=== PATIENT | female | born 1960 | race Caucasian/White ===

== ENCOUNTER 2023-10-10 12:11 | Inpatient (IN) | payer MEDICARE, MEDICAID, SELFPAY ==
[2023-10-10] VITALS (61 sets, daily range): BP systolic 89–225; BP diastolic 70–120; PULSE 40–70; RESP 11–26; TEMP 36.7–37.2; O2SAT 94–100
--- NOTE | 2023-10-10 12:15 | RT.EKG_ITS ---
APPROVED REPORT Exam: Resting ECG Reason for Exam: SOB Patient Location: E HR:55 bpm ECG Measurements Heart Rate 55 AXIS SD [id number] P 0 QRSd 107 QRS -18 QT 478 T 35 QTc 456 Conclusion AV block, complete (third degree)...V-rate< 60, AV dissociation Accelerated idioventricular rhythm. No obvious P waves. Regular rate pleat heart block. Left axis deviation no signs of LVH based on voltage criteria. No ischemic changes beyond mild ST segment depr essions V2 and V3. Low voltage limb leads. Compared to prior in [facility] system from 2012 AV block has replaced normal sinus rhythm.
--- NOTE | 2023-10-10 12:45 | RT.EKG_ITS ---
APPROVED REPORT Exam: Resting ECG Reason for Exam: Chest pain Patient Location: E HR:50 bpm ECG Measurements Heart Rate 50 AXIS NJ 151 P 0 QRSd 99 QRS -21 QT 485 T 36 QTc 444 Conclusion Sinus bradycardia...rate< 60 Narrow complex sinus bradycardia at a rate of 50. Normal axis. Intervals within normal limits. No ST segment abnormalities. Low voltage limb leads similar to prior. Sinus bradycardia has replaced a ccelerated interventricular rhythm from prior.
--- NOTE | 2023-10-10 12:46 | ED.GENADUL_ITS ---
Discharge Plan Disposition Patient Disposition: Admit to [facility] Discharge Details Clinical Impression: Blood pressure elevated without history of HTN, Chest pain, unspecified Admit Date/Time: 10/10/23 17:33 Admit Provider: Lisa Coelho Attending Provider: Lisa Coelho Primary Care Provider: Unknown,Unknown ED Provider: Kamari Downey Discharge Data Discharge Date/Time-TO BE ENTERED AT DEPARTURE: 10/10/23 19:59 HPI General Date/Time Provider Initiated Documentation: 10/10/23 12:46 . HPI Narrative: MDM This is an afebrile and not tachycardic 63-year-old female with chest pain concerning for multiple etiologies. Patient reports that she has been nauseous but not vomiting. As result my suspicion is low for esophageal rupture. No tearing quality to suggest aortic dissection. Based on the patient's age and my low suspicion for pulmonary embolism will plan on obtaining a D-dimer. Patient does have risk factors for ACS so will obtain troponins. No history of falls to suggest trauma. No B-lines bilaterally and no significant lower extremity edema so my suspicion is low for acute CHF. Patient does have a trace pericardial effusion so we will order a formal echocardiogram to ensure that she does not have tamponade physiology though she is not hypotensive nor tachycardic. No rash to chest to suggest zoster. No significant cough to suggest pneumonia and no fevers. Will reassess following 2 sets of troponin. Given no recent URI symptoms my suspicion is low for myopericarditis. Will obtain COVID flu and influenza. No pain out of proportion to suggest necrotizing soft tissue infection. Not an alcoholic to suggest pancreatitis. Given bradycardia will obtain a lactate to assess for gut hypoperfusion. 1:55 PM Negative troponin. Comprehensive metabolic panel showing normal renal function. Very mild hypokalemia. No acute LFT abnormalities. CBC lacks anemia thrombocytopenia and leukocytosis. Very mildly elevated lactate at 1.5 mmol/L.Normal reassuring magnesium. Normal reassuring TSH. proBNP mildly elevated at 800 pg/mL. 2:07 PM Unfortunately echocardiogram is not available today. I anticipate that patient will require hospitalization to complete echocardiogram and for cardiac monitoring. Negative D-dimer. Negative flu RSV, COVID and influenza. 2:30 PM Patient became markedly hypertensive in setting of chest pain concerned about possibility of dissection so we will obtain CT chest abdomen pelvis. Given hypertension and bradycardia I am also concerned for the possibility of [place]'s reflex so we will obtain a dry CT head. 4:15 PM I spoke with radiology and the patient will be able to undergo echocardiogram tomorrow. Given that she has not been tachycardic nor hypotensive in the emergency department my suspicion for tamponade physiology remains low. As result I feel that she is appropriate for local hospitalization assuming she does not take troponin. 4:40 PM Repeat negative troponin. Awaiting CT read. 4:45 PM No evidence of dissection on CT scan. Patient does have small amount of ascites in the abdomen pelvis mild anasarca and concern on CT scan for possibility of right heart failure. Given concern for small pericardial effusion patient will benefit from hospitalization with formal echocardiogram tomorrow. I spoke with echo techs and they have a spot for the patient tomorrow. Will reach out to the hospitalist. Patient certainly could have pericardial effusion related to malignancy. Patient noted improvement in her symptoms following nitroglycerin. 5pm I spoke with Dr. Bean from general surgery. He advised that patient's hernia was not likely causing her symptoms. Patient's blood pressure became markedly elevated into the 220s systolically. She is not on any outpatient home antihypertensives but given concern for right-sided heart failure will trial small dose of oral diuretics with furosemide at 40 mg p.o. 5:08 PM I spoke with Dr. Coelho who agreed graciously to accept the patient for hospitalization. Chronic conditions affecting the care of the patient: Hyperlipidemia History obtained from an outside historian: Patient's External record review: [facility] [Diagnostic interpretations performed by me: Chest x-ray:Chest x-ray showing mildly increased interstitial markings bilaterally. Per my independent interpretation EKG shows: Initial rhythm concerning for accelerated ventricular rhythm. Repeat ECG shows sinus bradycardia with low voltage in limb leads. ]Medications: N/A Social determinants of health affecting disposition: N/A Management discussed with: Hospitalist Treatment/interventions considered: N/A Response to therapies provided: N/A HPI This is a 63-year-old female with a history of hyperlipidemia arrived to the emergency department in the setting of chest pain. Patient reports that her chest pain began this morning. She feels nauseous. She endorses a central constant chest pain. Pain does not radiate. No prior history of similar symptoms. No recent URI symptoms. No positional component. No leg swelling. No prior history of PE nor DVT. No history of coronary artery disease diabetes nor hypertension. Patient reports that her pain is constant since yesterday. No routine tobacco, ethanol, nor illicits. No prior history of similar pain. No rash to chest. Patient denies history of COPD and tobacco use.Patient does feel slightly more short of breath when she lays flat. Exam General: Well-appearing in no acute distress speaking in complete sentences. Head: Normocephalic, atraumatic. Eye: Extraocular eye movements intact. No conjunctival injection. No scleral icterus. Ear, nose, mouth, throat: Grossly normal inspection. Normal voice, handling secretions normally. Neck: Trachea midline. Cardiovascular: Well-perfused distal extremities. Bradycardic regular rhythm Respiratory: Nonlabored respiration. Clear lungs bilaterally. Gastrointestinal: Nondistended abdomen. Soft nontender. Musculoskeletal: No edema. Moving all 4 extremities spontaneously. Skin: Normal for age and race, grossly normal temperature and turgor. No acute rash. Neurologic: Alert and appropriate, no apparent acute deficits. Psychiatric: Mood and manner are appropriate. Grooming and personal hygiene are appropriate. Related Data Home Medications Medication Instructions Recorded Confirmed atogepant 60 mg tablet (Qulipta) 60 mg PO DAILY 10/10/23 10/10/23 escitalopram oxalate 20 mg tablet 20 mg PO DAILY 10/10/23 10/10/23 lamotrigine 100 mg tablet 100 mg PO DAILY 10/10/23 10/10/23 (Lamictal) loratadine 10 mg tablet 10 mg PO DAILY 10/10/23 10/10/23 (Allerclear) omeprazole 40 mg capsule,delayed 40 mg PO DAILY 10/10/23 10/10/23 release simvastatin 40 mg tablet 40 mg PO QHS 10/10/23 10/10/23 trazodone 150 mg tablet 150 mg PO QHS PRN 10/10/23 10/10/23 Allergies Allergy/AdvReac Type Severity Reaction Status Date / Time morphine AdvReac Mild Nausea Unverified 10/10/23 13:38 Sulfa (Sulfonamide AdvReac Mild Nausea Unverified 10/10/23 13:38 Antibiotics) General Stated Complaint: Chest Pain DUSTIN: 2 PFSH All Active Problems (Updated 10/11/23 @ 00:57 by Roscoe Hardwick) Hypokalemia (Acute) CHF (congestive heart failure) (Acute) Renal atrophy, left (Chronic) Hyperlipidemia (Chronic) Migraine headache (Chronic) GERD (gastroesophageal reflux disease) (Chronic) Depression (Chronic) Sinus bradycardia (Acute) HTN (hypertension) (Acute) Atypical chest pain (Acute) Blood pressure elevated without history of HTN (Acute) Surgical History (Updated 10/10/23 @ 18:29 by Roscoe Hardwick) S/P cholecystectomy Status post Lilly fundoplication Social History Smoking/Tobacco Use Status: Never Smoking risk assessment performed?: Yes Alcohol Intake: never Substance use type: does not use Housing: house Do you feel safe at home: Yes Do you feel safe in your relationship?: Yes Course Vital Signs Vital signs: Vital Signs Temperature 37.2 C 10/10/23 12:28 Pulse 59 L 10/10/23 12:28 Respiratory Rate 16 10/10/23 12:28 Blood Pressure 138/90 10/10/23 12:28 Pulse Oximetry 100 10/10/23 12:28 Temperature 37.2 C 10/10/23 12:28 Temperature Source Skin 10/10/23 12:28 Pulse 59 L 10/10/23 12:28 Respiratory Rate 16 10/10/23 12:28 Blood Pressure 138/90 10/10/23 12:28 Pulse Oximetry 100 10/10/23 12:28 Oxygen Delivery Method Room Air 10/10/23 12:28 Oxygen Flow Rate 0 10/10/23 12:28 Pain Level 8 10/10/23 12:28 POCUS Exam (ED) Limited Cardiac Exam DATE OF EXAM: 10/10/23 TIME OF EXAM: 14:04 PROVIDER THAT PERFORMED THE STUDY: Kamari Downey IS THIS A REPEAT EXAM DURING THIS ENCOUNTER: no REASON FOR EXAM: Chest pain VISUALIZED STRUCTURES: Four Chambers and Left ventricle VIEW OBTAINED: Apical 4-Chamber, Parasternal long-axis and Subxiphoid PERTINENT FINDINGS/IMPRESSION: Pericardial effusion (Trace pericardial effusion); No LV dysfunction and No RV dilation DIFFERENTIAL DIAGNOSES: Good squeeze, aortic outflow track less than 4 cm, trace pericardial effusion, RV less than LV Exam complete
[2023-10-10 13:24] LABS: Lactate 1.5 mmol/L (0.6-1.4)
[2023-10-10 13:25] LABS: Abs Immature Grans 0.01 10^3/uL (0.0-0.06); Absolute Basophil Count 0.01 10^3/uL (0.0-0.2); Absolute Eosinophil Count 0.06 10^3/uL (0.0-0.7); Absolute Lymphocyte Count 1.24 10^3/uL (1.2-3.4); Absolute Monocyte Count 0.26 10^3/uL (0.1-0.8); Absolute Neutrophil Count 2.86 10^3/uL (1.2-6.7); Basophils % 0.2; Eosinophils % 1.4; HGB 12.8 g/dL (11.2-15.7); Immature Grans % 0.2; Lymphocytes % 27.9; MCH 30.4 pg (27.0-33.0); MCHC 34.6 % (32.0-36.0); MCV 88 fL (80-95); MPV 10.8 fL (8.0-11.0); Monocytes % 5.9; Neutrophils % 64.4; Platelet Count 185 10^3/uL (130-400); RBC 4.21 10^6/uL (3.93-5.22); RDW 12.6 % (11.7-14.6); RDW-SD 40.4 fL; WBC 4.44 10^3/uL (4.4-10.8)
[2023-10-10] MEDS: Aspirin 81 MG CHEW 324 MG CH (13:31)
--- NOTE | 2023-10-10 13:33 | DI.RAD_ITS ---
Exam(s) XR PORTABLE CHEST AP EXAM: XR PORTABLE CHEST AP CLINICAL HISTORY: Chest pain TECHNIQUE: 2D digital imaging was performed of the chest. Two images were obtained. AP views were obtained. COMPARISON: No exams were available for comparison FINDINGS: MEDIASTINUM: Normal. HEART: Cardiomegaly. PULMONARY VASCULATURE: Normal. LUNGS: Clear. PLEURAL SPACE: No pleural effusion or pneumothorax. BONE:Within normal limits for the patient's age. OTHER FINDINGS:Normal. IMPRESSION: No acute pulmonary findings. DATA REPOSITORY: RADIATION DOSE DELIVERED:
[2023-10-10 13:51] LABS: ALT 28 U/L (14-59); AST 20 U/L (15-37); Albumin 3.7 g/dL (3.4-5.0); Alkaline Phosphatase 98 U/L (46-116); BUN 5 mg/dL (7-18); Bilirubin, Total 0.9 mg/dL (0.2-1.0); Calcium 9.3 mg/dL (8.5-10.1); Chloride 103 mmol/L (98-107); Glucose 103 mg/dL (74-106); Magnesium 1.8 mg/dL (1.8-2.4); NT-proBNP 800 pg/mL (<300); Potassium 3.4 mmol/L (3.5-5.1); Sodium 139 mmol/L (136-145); Total Protein 6.4 g/dL (6.4-8.2); Troponin I < 50 ng/L (<or=60)
[2023-10-10 14:01] LABS: D-Dimer 369 ng/mlFEU (<500)
[2023-10-10 14:05] LABS: COVID-19 PCR Negative (Negative); Influenza A PCR Negative (Negative); Influenza B PCR Negative (Negative); RSV PCR Negative (Negative)
[2023-10-10 14:07] LABS: Source Nasopharynx
--- NOTE | 2023-10-10 14:15 | DI.CT_ITS ---
Exam(s) CT THORAX ABD/PEL CTA EXAM: CT THORAX ABD/PEL CTA CLINICAL HISTORY: Chest pain hypertension. TECHNIQUE: Imaging Protocol: Axial computed tomography images with coronal and sagittal reformatted images were created and reviewed CONTRAST MATERIAL: Intravenous: Omnipaque 350 Contrast volume:100 ml Oral: None COMPARISON: CR XR PORTABLE CHEST AP from 10/10/2023 FINDINGS: CHEST: AORTA: The diameter of the ascending thoracic aorta is enlarged measuring 3.9 cm.. The diameter of t he aortic arch is upper normal. Diameter of the proximal descending thoracic aorta, mid descending t horacic aorta and distal descending thoracic aorta are upper normal. There is no evidence of aortic dissection. There is no pericardial effusion. Incidentally noted is independent origin of the left vertebral artery off of the aortic arch. PULMONARY ARTERIES: No obvious intraluminal filling defects to suggest the presence of pulmonary embo li. LUNGS: No evidence of infiltrates, pulmonary infarction, nor pleural effusions. Minimal benign-appea ring increased markings are noted in both lung bases.. MEDIASTINUM: Moderate size hiatal hernia noted. No hilar nor mediastinal adenopathy evident. Visual ized thyroid unremarkable. CARDIAC: Heart size is minimally prominent. There is no pericardial effusion. Ventricular ratio is 1:1. ABDOMEN: There is no evidence of abdominal aortic aneurysm nor dissection.There is no aneurysmal dilatation of the common iliac arteries. Common femoral arteries are patent as are the proximal aspects of the SF A arteries bilaterally.The celiac and superior mesenteric arteries are patent.Right renal artery is p atent. The left renal artery is not opacified and the left kidney is diminutive. There is a mild perihepatic ascites as well as mild ascites in the dependent aspect of the pelvis. LIVER: Liver is hypodense implying steatosis. No obvious focal hepatic lesions evident on this arter ial phase study. GALLBLADDER/BILIARY: Gallbladder is surgically absent. CBD diameter is commensurate with patient's p ost cholecystectomy status. PANCREAS: No evidence of pancreatic mass nor dilatation of the pancreatic duct. SPLEEN: Spleen is not enlarged. There are no intrasplenic lesions. ADRENALS: There are no significant adrenal masses. KIDNEYS: Right kidney unremarkable. On the left kidney is diminutive as is the left renal artery. N o calculi nor hydronephrosis. No solid renal masses. ABDOMINAL AORTA: The abdominal aorta is not enlarged. LYMPH NODES: There is no retroperitoneal nor para-aortic adenopathy. No obvious mesenteric masses. ABDOMINAL WALL: No evidence of significant anterior abdominal wall hernia. Mild anasarca. GI: There is no evidence of bowel obstruction, free air, nor abscess.No obvious ischemic appearing joesph wel loops. PELVIS: LYMPH NODES: There is no intrapelvic nor inguinal adenopathy. GI: Appendix is difficult to locate as a separate structure but no obvious appendicitis seen.No evide nce of sigmoid diverticulitis. URINARY BLADDER: No calculi nor masses evident REPRODUCTIVE: Age-appropriate OSSEOUS: No significant osseous lesions. No fractures. IMPRESSION: 1. The ascending thoracic aorta is enlarged measuring 3.9 cm. However, there is no evidence of aorti c dissection nor pericardial effusion. No evidence of abdominal aortic aneurysm. Also no evidence o f pulmonary emboli nor pulmonary infarction. There are no pleural effusions. 2. The left kidney is diminutive and the left renal artery is also diminutive. Right kidney and righ t renal artery appear unremarkable. 3. There is a small amount of ascites in the abdomen and pelvis. There is also mild anasarca. Some reflux of contrast was noted into the intrahepatic IVC. Cannot exclude element of right heart failur e. 4. Previous cholecystectomy. No significant dilatation of the biliary tree. Report called by myself to ER physician. RADIATION DOSE DELIVERED: Total DLP DATA REPOSITORY: All CT scans at this facility are submitted to the National Radiology Data Registry (NRDR) Dose Index Registry (DIR) with the [employer] ([employer]). RADIATION OPTIMIZATION: All CT scans at this facility use at least one of these dose optimization te chniques: automated exposure control; mA and/or kV adjustment per patient size (includes targeted exa ms where dose is matched to clinical indication); or iterative reconstruction.
--- NOTE | 2023-10-10 14:30 | DI.CT_ITS ---
Exam(s) CT HEAD WO EXAM: CT HEAD WO CLINICAL HISTORY: Hypertension bradycardia concern for intracranial. TECHNIQUE: Imaging Protocol: Axial computed tomography images with coronal and sagittal reformatted images were created and reviewed COMPARISON: No exams were available for comparison FINDINGS: Ventricles and Extra axial spaces: Normal in size and morphology for the patient's age. Hemorrhage: None. Cerebral parenchyma: No mass effect. There are areas of decreased attenuation in the white matter mo st consistent with small vessel ischemic disease. Midline shift: None. Brainstem/Cerebellum: Normal. Calvarium: Normal. Visualized Paranasal sinuses/Mastoids: Clear. Soft Tissues: Unremarkable. IMPRESSION: 1. No acute intracranial process. 2. Findings were discussed with Dr. Davis at 3:57 p.m. on 10/10/2023. RADIATION DOSE DELIVERED: Total DLP DATA REPOSITORY: All CT scans at this facility are submitted to the National Radiology Data Registry (NRDR) Dose Index Registry (DIR) with the [employer] (A[employer]). RADIATION OPTIMIZATION: All CT scans at this facility use at least one of these dose optimization te chniques: automated exposure control; mA and/or kV adjustment per patient size (includes targeted exa ms where dose is matched to clinical indication); or iterative reconstruction.
[2023-10-10] MEDS: Normal Saline - Diluent 50 ML VIAL IJ (15:56)
[2023-10-10] MEDS: Omnipaque 350 MG/ML 100 ML BTL 125 ML IJ (16:01)
[2023-10-10 16:33] LABS: Troponin I < 50 ng/L (<or=60)
--- NOTE | 2023-10-10 16:50 | DI.VRAD_ITS ---
PROCEDURE INFORMATION: Exam: CTA Chest With Contrast CTA Abdomen and Pelvis With Contrast Exam date and time: 10/10/2023 3:45 PM Age: 63 years old Clinical indication: Other: Chest pain hypertension TECHNIQUE: Imaging protocol: Computed tomographic angiography of the chest with contrast. Exam focused on the arteries. Computed tomographic angiography of the abdomen and pelvis with contrast. Exam focused on the arteries. 3D rendering (Not supervised by radiologist): MIP and/or 3D reconstructed images were created by the technologist. Contrast material: OMNIPAQUE; Contrast volume: 100 ml; Contrast route: INTRAVENOUS (IV); COMPARISON: CR XR PORTABLE CHEST AP 10/10/2023 1:30 PM FINDINGS: VASCULATURE: Pulmonary arteries: Normal. No pulmonary emboli. Aorta: No aortic aneurysm or dissection. Mild atherosclerotic disease. Three-vessel arch with patent great vessel origins. Celiac trunk and mesenteric arteries: No occlusion or significant stenosis. Renal arteries: Severe stenosis of the left renal artery. No occlusion or significant stenosis of the right renal artery. Right iliac arteries: No occlusion or significant stenosis. Left iliac arteries: No occlusion or significant stenosis. CHEST: Lungs: Evaluation of the lung parenchyma is limited by motion artifact. No consolidation. No mass. Mild atelectasis and/or scarring. Pleural spaces: Unremarkable. No pneumothorax. No pleural effusion. Heart: Unremarkable. No cardiomegaly. No pericardial effusion. Diaphragm: Small hiatal hernia. ABDOMEN AND PELVIS: Liver: No mass. Gallbladder and bile ducts: The gallbladder is surgically absent. Pancreas: Fatty atrophy of the pancreas. Spleen: Unremarkable. No splenomegaly. Adrenal glands: Unremarkable. No mass. Kidneys and ureters: Severely atrophic left kidney. Right kidney is unremarkable. Mild prominence of the bilateral ureters, possibly physiologic. Stomach and bowel: Small hiatal hernia containing proximal stomach. Mildly distended fluid-filled loops of small bowel within the mid and left hemiabdomen. No sharp transition point. Mild wall thickening of the ascending, descending and sigmoid colon. Appendix: No evidence of appendicitis. Intraperitoneal space: Small volume intraperitoneal free fluid. Urinary bladder: Unremarkable. No mass. Reproductive: Unremarkable as visualized. Lymph nodes: Multiple retroperitoneal and mesenteric lymph nodes are seen, though measuring less than 1 cm in short axis. Bones/joints: Degenerative changes of the spine. Chronic rib fractures. Soft tissues: Anasarca IMPRESSION: 1. No aortic dissection. 2. Small volume ascites. 3. Mildly distended fluid-filled loops of small bowel without sharp transition point. Findings could reflect ileus or partial small bowel obstruction. 4. Mild wall thickening of the colon. Finding is nonspecific in the setting of intraperitoneal free fluid, although could represent colitis. Dictated and Authenticated by: Mu Mccracken MD. Ordering:PAYAL Benites MD
[2023-10-10] MEDS: Furosemide 20 MG TAB 40 MG PO (17:28)
--- NOTE | 2023-10-10 18:20 | W.PM.HP.N ---
Date of service: 10/10/23 Time of Service: 18:20 Assessment and Plan Assessment and plan (1) Atypical chest pain: Start date: 10/10/23 Status: Acute Assessment and plan: This is a 63-year-old lady presenting to the ED with chest pressure and pain which was retrosternal. This is worse with exertion and has some associated dyspnea but no other associated symptoms. She has been having increasing shortness of breath in the morning with exertion over the last weeks. She has had no weight gain or peripheral edema. In the ED she was found to have a bradycardia with question of junctional dysrhythmia intermittently. Her troponins were negative and she had no evidence of acute cardiac ischemia. She was given loading dose of aspirin and was not being treated for acute coronary syndrome or non-STEMI at this time with her pain improved at the time I saw her having been given IV Lasix. She was assessed as having possible right-sided heart failure with plans for echocardiogram in the morning and troponins being trended negative. She will continue cardiac monitoring. She has no previous significant heart disease or history of hypertension being hypertensive in the ED. She does have evidence of a atrophied left kidney and renal artery which may need further investigation especially with her hypertension. She is a full code. (2) CHF (congestive heart failure): Start date: 10/10/23 Status: Acute Assessment and plan: Patient has a question of right-sided heart failure with mild ascites. Echocardiogram and continue IV Lasix with repletion of potassium anticipating further exacerbation of hypokalemia. She is currently not on diuretics. Qualifiers: Heart failure type: other Qualified Code(s): I50.9 - Heart failure, unspecified (3) Sinus bradycardia: Start date: 10/10/23 Status: Acute Assessment and plan: Patient has sinus bradycardia but also an intermittent appearance of junctional dysrhythmia with P waves absent and no true evidence of third-degree or secondary heart block on tracing seen. Continue cardiac monitoring and avoid. Hypertension with beta-blockers. (4) HTN (hypertension): Start date: 10/10/23 Status: Acute Assessment and plan: Patient does not have runs of hypertension in the past and had very significant elevation of her systolic blood pressure in the ED. She was initiated on amlodipine. She does have a small left kidney and may need further workup for secondary hypertension if difficult to control. Avoid beta-blockers with bradycardia. Qualifiers: Hypertension type: primary hypertension Qualified Code(s): I10 - Essential (primary) hypertension (5) Hypokalemia: Start date: 10/10/23 Status: Acute Assessment and plan: IV repletion and follow-up in the morning. Monitor daily magnesium as well. (6) GERD (gastroesophageal reflux disease): Status: Chronic Assessment and plan: Status post previous procedures with maximization of treatment adding Carafate with IV Protonix while hospitalized. Qualifiers: Esophagitis presence: without esophagitis Qualified Code(s): K21.9 - Gastro-esophageal reflux disease without esophagitis (7) Depression: Status: Chronic Assessment and plan: Continue outpatient medical therapy. Qualifiers: Depression Type: other depression Qualified Code(s): F32.89 - Other specified depressive episodes (8) Migraine headache: Status: Chronic Assessment and plan: Continue outpatient medical therapy. Qualifiers: Intractability: not intractable Migraine type: other Status migrainosus presence: without status migrainosus Qualified Code(s): G43.809 - Other migraine, not intractable, without status migrainosus (9) Hyperlipidemia: Status: Chronic Assessment and plan: Continue moderate dose statin. Qualifiers: Hyperlipidemia type: other hyperlipidemia Qualified Code(s): E78.49 - Other hyperlipidemia (10) Renal atrophy, left: Status: Chronic Assessment and plan: Diminutive left kidney and renal artery with further medication for secondary hypertension if blood pressure continues to be out of control. Renal functions appear to be normal but will be monitored with IV diuresis. History of Present Illness History of Present Illness Chief Complaint: Chest pain Narrative: This is a 63-year-old female patient who presents to the ED with complaints of chest pressure and pain which was not sharp occurring over her retrosternal area the evening of presentation. She had been having increased shortness of breath with exertion especially in the morning when washing dishes but had no peripheral edema or weight gain. She had actually weighed 207 pounds years ago and has lost down to 111 pounds. She has had a Dk fundoplication in the past for severe esophageal hernia and also cholecystectomy. She is not having heartburn or problems with dysphagia with this presentation of chest discomfort. Evaluation in the ED did reveal multiple fluid overload and also patient was having bradycardia with EKG and rhythm strip showing possible junctional dysrhythmia intermittently with sinus bradycardia is baseline. She is not on medical therapy for high blood pressure but did have hypertension in the ED. She was ordered a dose of amlodipine which was given and has hydralazine IV if needed for blood pressure control. She has not had a problem with hypertension in the past. She denies any radiation of her chest discomfort but it was exertional. She is having no evidence of cardiac ischemia with negative troponins and no associated symptoms with her chest discomfort being pain-free at rest at the time of my exam. The patient is being admitted for right-sided CHF have been given IV Lasix in the ED and this will be continued with echocardiogram follow-up in the morning. She also had mild hypokalemia which will be repleted with IV potassium and she was initiated on a loading dose of aspirin which will be continued low-dose. She is on omeprazole chronically and with her atypical chest pain presentation she will be given Carafate along with IV Protonix to maximally treat possible esophageal issues causing pain. It does not appear she was given nitroglycerin in the ED but this was ordered as needed. She was not initiated on heparin infusion-no evidence of overt cardiac ischemia or non-STEMI but was placed on Lovenox for DVT prophylaxis. Patient is a full code. Thank you Review of Systems Narrative: 13 point review of systems otherwise unrevealing or stable. PFSH All Active Problems (Updated 10/11/23 @ 00:57 by Roscoe Hardwikc) Hypokalemia (Acute) CHF (congestive heart failure) (Acute) Renal atrophy, left (Chronic) Hyperlipidemia (Chronic) Migraine headache (Chronic) GERD (gastroesophageal reflux disease) (Chronic) Depression (Chronic) Sinus bradycardia (Acute) HTN (hypertension) (Acute) Atypical chest pain (Acute) Blood pressure elevated without history of HTN (Acute) Surgical History (Updated 10/10/23 @ 18:29 by Rocsoe Hardwick) S/P cholecystectomy Status post Lilly fundoplication Social History Smoking/Tobacco Use Status: Never Smoking risk assessment performed?: Yes Alcohol Intake: never Substance use type: does not use Housing: house Do you feel safe at home: Yes Do you feel safe in your relationship?: Yes Meds Allergies and Home Medications Allergies Allergy/AdvReac Type Severity Reaction Status Date / Time morphine AdvReac Mild Nausea Unverified 10/10/23 13:38 Sulfa (Sulfonamide AdvReac Mild Nausea Unverified 10/10/23 13:38 Antibiotics) Home Medications Medication Instructions Recorded Confirmed Type atogepant 60 mg tablet (Qulipta) 60 mg PO DAILY 10/10/23 10/10/23 History escitalopram oxalate 20 mg tablet 20 mg PO DAILY 10/10/23 10/10/23 History lamotrigine 100 mg tablet 100 mg PO DAILY 10/10/23 10/10/23 History (Lamictal) loratadine 10 mg tablet 10 mg PO DAILY 10/10/23 10/10/23 History (Allerclear) omeprazole 40 mg capsule,delayed 40 mg PO DAILY 10/10/23 10/10/23 History release simvastatin 40 mg tablet 40 mg PO QHS 10/10/23 10/10/23 History trazodone 150 mg tablet 150 mg PO QHS PRN 10/10/23 10/10/23 History Exam Narrative Exam Narrative: General: Patient appears older than stated age, thin and chronically ill-appearing. She has no acute distress. Alert and oriented x 3. HEENT: Normocephalic, eyes with pupils equal reactive to light symmetrically, extraocular move intact and sclera anicteric. Oropharynx with moist mucosa and fair dentition. Neck: Supple without JVD. Back: Kyphotic without CVA tenderness. Lungs: Fair aeration and clear to auscultation and percussion with no focalizing rales or rhonchi. Breast: Exam deferred. Heart: Irregular rhythm with bradycardic rate, no appreciable murmur or gallop. No rubs. Abdomen: Scaphoid contour, soft nontender to palpation with no palpable hepatosplenomegaly. Bowel sounds positive all quadrants. Genitalia/rectal: Exam deferred. Extremities: Without clubbing, cyanosis or pitting edema. Good capillary refill. Joints do have arthritic changes without swelling. Skin: Pale, warm and slightly moist especially over trunk. Neuro: Cranial nerves II through XII gross intact, no focalizing motor deficits. No tremor. Psych: Flattened affect but normal mood. No abnormal thought processes. Remote and recent memory grossly intact. Results Imaging Imaging Studies: CT THORAX ABD/PEL CTA EXAM: CT THORAX ABD/PEL CTA CLINICAL HISTORY: Chest pain hypertension. TECHNIQUE: Imaging Protocol: Axial computed tomography images with coronal and sagittal reformatted images were created and reviewed CONTRAST MATERIAL: Intravenous: Omnipaque 350 Contrast volume:100 ml Oral: None COMPARISON: CR XR PORTABLE CHEST AP from 10/10/2023 FINDINGS: CHEST: AORTA: The diameter of the ascending thoracic aorta is enlarged measuring 3.9 cm.. The diameter of the aortic arch is upper normal. Diameter of the proximal descending thoracic aorta, mid descending thoracic aorta and distal descending thoracic aorta are upper normal. There is no evidence of aortic dissection. There is no pericardial effusion. Incidentally noted is independent origin of the left vertebral artery off of the aortic arch. PULMONARY ARTERIES: No obvious intraluminal filling defects to suggest the presence of pulmonary emboli. LUNGS: No evidence of infiltrates, pulmonary infarction, nor pleural effusions. Minimal benign-appearing increased markings are noted in both lung bases.. MEDIASTINUM: Moderate size hiatal hernia noted. No hilar nor mediastinal adenopathy evident. Visualized thyroid unremarkable. CARDIAC: Heart size is minimally prominent. There is no pericardial effusion. Ventricular ratio is 1:1. ABDOMEN: There is no evidence of abdominal aortic aneurysm nor dissection.There is no aneurysmal dilatation of the common iliac arteries. Common femoral arteries are patent as are the proximal aspects of the SFA arteries bilaterally.The celiac and superior mesenteric arteries are patent.Right renal artery is patent. The left renal artery is not opacified and the left kidney is diminutive. There is a mild perihepatic ascites as well as mild ascites in the dependent aspect of the pelvis. LIVER: Liver is hypodense implying steatosis. No obvious focal hepatic lesions evident on this arterial phase study. GALLBLADDER/BILIARY: Gallbladder is surgically absent. CBD diameter is commensurate with patient's post cholecystectomy status. PANCREAS: No evidence of pancreatic mass nor dilatation of the pancreatic duct. SPLEEN: Spleen is not enlarged. There are no intrasplenic lesions. ADRENALS: There are no significant adrenal masses. KIDNEYS: Right kidney unremarkable. On the left kidney is diminutive as is the left renal artery. No calculi nor hydronephrosis. No solid renal masses. ABDOMINAL AORTA: The abdominal aorta is not enlarged. LYMPH NODES: There is no retroperitoneal nor para-aortic adenopathy. No obvious mesenteric masses. ABDOMINAL WALL: No evidence of significant anterior abdominal wall hernia. Mild anasarca. GI: There is no evidence of bowel obstruction, free air, nor abscess.No obvious ischemic appearing bowel loops. PELVIS: LYMPH NODES: There is no intrapelvic nor inguinal adenopathy. GI: Appendix is difficult to locate as a separate structure but no obvious appendicitis seen.No evidence of sigmoid diverticulitis. URINARY BLADDER: No calculi nor masses evident REPRODUCTIVE: Age-appropriate OSSEOUS: No significant osseous lesions. No fractures. IMPRESSION: 1. The ascending thoracic aorta is enlarged measuring 3.9 cm. However, there is no evidence of aortic dissection nor pericardial effusion. No evidence of abdominal aortic aneurysm. Also no evidence of pulmonary emboli nor pulmonary infarction. There are no pleural effusions. 2. The left kidney is diminutive and the left renal artery is also diminutive. Right kidney and right renal artery appear unremarkable. 3. There is a small amount of ascites in the abdomen and pelvis. There is also mild anasarca. Some reflux of contrast was noted into the intrahepatic IVC. Cannot exclude element of right heart failure. 4. Previous cholecystectomy. No significant dilatation of the biliary tree. - EXAM: CT HEAD WO CLINICAL HISTORY: Hypertension bradycardia concern for intracranial. TECHNIQUE: Imaging Protocol: Axial computed tomography images with coronal and sagittal reformatted images were created and reviewed COMPARISON: No exams were available for comparison FINDINGS: Ventricles and Extra axial spaces: Normal in size and morphology for the patient's age. Hemorrhage: None. Cerebral parenchyma: No mass effect. There are areas of decreased attenuation in the white matter most consistent with small vessel ischemic disease. Midline shift: None. Brainstem/Cerebellum: Normal. Calvarium: Normal. Visualized Paranasal sinuses/Mastoids: Clear. Soft Tissues: Unremarkable. IMPRESSION: 1. No acute intracranial process. EXAM: XR PORTABLE CHEST AP CLINICAL HISTORY: Chest pain TECHNIQUE: 2D digital imaging was performed of the chest. Two images were obtained. AP views were obtained. COMPARISON: No exams were available for comparison FINDINGS: MEDIASTINUM: Normal. HEART: Cardiomegaly. PULMONARY VASCULATURE: Normal. LUNGS: Clear. PLEURAL SPACE: No pleural effusion or pneumothorax. BONE:Within normal limits for the patient's age. OTHER FINDINGS:Normal. IMPRESSION: No acute pulmonary findings. Labs 10/10/23 12:57 10/10/23 12:57 Labs: Laboratory Results - last 24 hr 10/10/23 10/10/23 12 12:57 12:57 12:57 WBC 4.44 RBC 4.21 Hgb 12.8 Hct 37.0 MCV 88 MCH 30.4 MCHC 34.6 RDW 12.6 Plt Count 185 MPV 10.8 Immature Gran % 0.2 Neutrophils % 64.4 Lymphocytes % 27.9 Monocytes % 5.9 Eosinophils % 1.4 Basophils % 0.2 Nucleated RBC % 0.0 Absolute Neutrophils 2.86 Absolute Lymphocytes 1.24 Absolute Monocytes 0.26 Absolute Eosinophils 0.06 Absolute Basophils 0.01 D-Dimer 369 VBG Lactate 1.5 H Sodium 139 Potassium 3.4 L Chloride 103 Carbon Dioxide 29.0 Anion Gap 7.0 BUN 5 L Creatinine 1.0 Est GFR (CKD-EPI 2020) 63.70 Glucose 103 Calcium 9.3 Magnesium 1.8 Cancelled Total Bilirubin 0.9 AST 20 ALT 28 Alkaline Phosphatase 98 Troponin I < 50 NT-Pro-B Natriuret Pep 800 H Cancelled Total Protein 6.4 Albumin 3.7 TSH 0.90 COVID-19 Source SARS-CoV-2 (PCR) Influenza Type A (PCR) Influenza Type B (PCR) RSV (PCR) 10/10/23 10/10/23 10/10/23 12:57 13:23 16:07 WBC RBC Hgb Hct MCV MCH MCHC RDW Plt Count MPV Immature Gran % Neutrophils % Lymphocytes % Monocytes % Eosinophils % Basophils % Nucleated RBC % Absolute Neutrophils Absolute Lymphocytes Absolute Monocytes Absolute Eosinophils Absolute Basophils D-Dimer VBG Lactate Sodium Potassium Chloride Carbon Dioxide Anion Gap BUN Creatinine Est GFR (CKD-EPI 2020) Glucose Calcium Magnesium Total Bilirubin AST ALT Alkaline Phosphatase Troponin I < 50 NT-Pro-B Natriuret Pep Total Protein Albumin TSH Cancelled COVID-19 Source Nasopharynx SARS-CoV-2 (PCR) Negative Influenza Type A (PCR) Negative Influenza Type B (PCR) Negative RSV (PCR) Negative Last Vital Signs Temp 36.8 C 10/10/23 15:00 Pulse 43 L 10/10/23 14:31 Resp 18 10/10/23 14:31 BP 187/94 H 10/10/23 14:31 Pulse Ox 100 10/10/23 14:31 Time Spent Time spent with Patient: >75 minutes Time was spent: preparing to see the patient(eg.review tests), obtaining and/or reviewing separately otained hiistory, ordering medications,tests, procedures, referring, communicating with other health client care representative, indepentently interpreting results, counseling the patient and care coordination
--- NOTE | 2023-10-10 19:26 | W.PC.ACHO ---
Registration Status: REG ER Primary Language: Preferred Language: ED Information & Data Chief Complaint Chest Pain 10/10/23 13:52 Chief Complaint Chest Pain 10/10/23 12:47 Other Complaint SOB/SuddenOnset 10/10/23 12:28 Triage Note CP/SOB started this morning 10/10/23 12:28 stomach ache - ongoing for years (Last Updated 10/10/23 @ 18:29 by Roscoe Hardwick) S/P cholecystectomy Status post Lilly fundoplication Most Recent Vital Signs Temperature 36.8 C 10/10/23 15:00 Temperature Source Oral 10/10/23 14:31 Pulse 43 L 10/10/23 14:31 Respiratory Rate 18 10/10/23 14:31 Respiratory Effort Normal, Non-Labored 10/10/23 13:52 Respiratory Depth Normal 10/10/23 13:52 Respiratory Pattern Normal 10/10/23 13:52 Blood Pressure 187/94 H 10/10/23 14:31 Pulse Oximetry 100 10/10/23 14:31 Oxygen Delivery Method Room Air 10/10/23 14:31 Oxygen Flow Rate 0 10/10/23 14:31 Pain Level 4 10/10/23 15:00 Allergies morphine Adverse Reaction (Mild, Unverified 10/10/23 13:38) Nausea Headache Sulfa (Sulfonamide Antibiotics) Adverse Reaction (Mild, Unverified 10/10/23 13:38) Nausea Precautions Isolation Standard precaution 10/10/23 13:52 Active Medications Generic Name Dose Route Start Last Admin Trade Name Freq PRN Reason Stop Dose Admin Iohexol 125 ml 10/10/23 16:15 10/10/23 16:01 Omnipaque 350 Mg/Ml 100 Ml Btl IJ 11/09/23 23:59 125 ml DIRECTED LIMA Administration Nitroglycerin 0.3 mg 10/10/23 14:28 10/10/23 15:00 Nitroglycerin 0.3 Mg Tab SL 0.3 mg Q5 MIN PRN X3 PRN Administration Sodium Chloride 50 ml 10/10/23 16:00 10/10/23 15:56 Normal Saline - Diluent 50 Ml Vial IJ 50 ml .FOR DI USE LIMA Administration Diet Orders Category Date Time Status Heart Healthy Eating [DIET] Nutrition 10/10/23 Dinner Active Diagnostics 10/10/23 10/10/23 10/10/23 Range/Units 19:00 16:07 13:23 WBC (4.4-10.8) 10^3/uL RBC (3.93-5.22) 10^6/uL Hgb (11.2-15.7) g/dL Hct (36.0-46.0) % MCV (80-95) fL MCH (27.0-33.0) pg MCHC (32.0-36.0) % RDW (11.7-14.6) % Plt Count (130-400) 10^3/uL MPV (8.0-11.0) fL Immature Gran % Neutrophils % Lymphocytes % Monocytes % Eosinophils % Basophils % Nucleated RBC % (0.0-0.3) % Absolute Neutrophils (1.2-6.7) 10^3/uL Absolute Lymphocytes (1.2-3.4) 10^3/uL Absolute Monocytes (0.1-0.8) 10^3/uL Absolute Eosinophils (0.0-0.7) 10^3/uL Absolute Basophils (0.0-0.2) 10^3/uL D-Dimer (<500) ng/mlFEU VBG Lactate (0.6-1.4) mmol/L Sodium (136-145) mmol/L Potassium (3.5-5.1) mmol/L Chloride (98-107) mmol/L Carbon Dioxide (21.0-32.0) mmol/L Anion Gap (3-11) mmol/L BUN (7-18) mg/dL Creatinine (0.55-1.02) mg/dL Est GFR (CKD-EPI 2020) (mL/min/1.73m2) Glucose (74-106) mg/dL Calcium (8.5-10.1) mg/dL Magnesium (1.8-2.4) mg/dL Total Bilirubin (0.2-1.0) mg/dL AST (15-37) U/L ALT (14-59) U/L Alkaline Phosphatase (46-116) U/L Troponin I Pending < 50 (<or=60) ng/L NT-Pro-B Natriuret Pep (<300) pg/mL Total Protein (6.4-8.2) g/dL Albumin (3.4-5.0) g/dL TSH (0.36-3.74) uIU/mL COVID-19 Source Nasopharynx SARS-CoV-2 (PCR) Negative (Negative) Influenza Type A (PCR) Negative (Negative) Influenza Type B (PCR) Negative (Negative) RSV (PCR) Negative (Negative) 10/10/23 10/10/23 10/10/23 Range/Units 12:57 12:57 12:57 WBC (4.4-10.8) 10^3/uL RBC (3.93-5.22) 10^6/uL Hgb (11.2-15.7) g/dL Hct (36.0-46.0) % MCV (80-95) fL MCH (27.0-33.0) pg MCHC (32.0-36.0) % RDW (11.7-14.6) % Plt Count (130-400) 10^3/uL MPV (8.0-11.0) fL Immature Gran % Neutrophils % Lymphocytes % Monocytes % Eosinophils % Basophils % Nucleated RBC % (0.0-0.3) % Absolute Neutrophils (1.2-6.7) 10^3/uL Absolute Lymphocytes (1.2-3.4) 10^3/uL Absolute Monocytes (0.1-0.8) 10^3/uL Absolute Eosinophils (0.0-0.7) 10^3/uL Absolute Basophils (0.0-0.2) 10^3/uL D-Dimer (<500) ng/mlFEU VBG Lactate (0.6-1.4) mmol/L Sodium (136-145) mmol/L Potassium (3.5-5.1) mmol/L Chloride (98-107) mmol/L Carbon Dioxide (21.0-32.0) mmol/L Anion Gap (3-11) mmol/L BUN (7-18) mg/dL Creatinine (0.55-1.02) mg/dL Est GFR (CKD-EPI 2020) (mL/min/1.73m2) Glucose (74-106) mg/dL Calcium (8.5-10.1) mg/dL Magnesium Cancelled (1.8-2.4) mg/dL Total Bilirubin 0.9 (0.2-1.0) mg/dL AST 20 (15-37) U/L ALT 28 (14-59) U/L Alkaline Phosphatase 98 (46-116) U/L Troponin I < 50 (<or=60) ng/L NT-Pro-B Natriuret Pep Cancelled 800 H (<300) pg/mL Total Protein 6.4 (6.4-8.2) g/dL Albumin 3.7 (3.4-5.0) g/dL TSH Cancelled 0.90 (0.36-3.74) uIU/mL COVID-19 Source SARS-CoV-2 (PCR) (Negative) Influenza Type A (PCR) (Negative) Influenza Type B (PCR) (Negative) RSV (PCR) (Negative) 10/10/23 Range/Units 12:57 WBC 4.44 (4.4-10.8) 10^3/uL RBC 4.21 (3.93-5.22) 10^6/uL Hgb 12.8 (11.2-15.7) g/dL Hct 37.0 (36.0-46.0) % MCV 88 (80-95) fL MCH 30.4 (27.0-33.0) pg MCHC 34.6 (32.0-36.0) % RDW 12.6 (11.7-14.6) % Plt Count 185 (130-400) 10^3/uL MPV 10.8 (8.0-11.0) fL Immature Gran % 0.2 Neutrophils % 64.4 Lymphocytes % 27.9 Monocytes % 5.9 Eosinophils % 1.4 Basophils % 0.2 Nucleated RBC % 0.0 (0.0-0.3) % Absolute Neutrophils 2.86 (1.2-6.7) 10^3/uL Absolute Lymphocytes 1.24 (1.2-3.4) 10^3/uL Absolute Monocytes 0.26 (0.1-0.8) 10^3/uL Absolute Eosinophils 0.06 (0.0-0.7) 10^3/uL Absolute Basophils 0.01 (0.0-0.2) 10^3/uL D-Dimer 369 (<500) ng/mlFEU VBG Lactate 1.5 H (0.6-1.4) mmol/L Sodium 139 (136-145) mmol/L Potassium 3.4 L (3.5-5.1) mmol/L Chloride 103 (98-107) mmol/L Carbon Dioxide 29.0 (21.0-32.0) mmol/L Anion Gap 7.0 (3-11) mmol/L BUN 5 L (7-18) mg/dL Creatinine 1.0 (0.55-1.02) mg/dL Est GFR (CKD-EPI 2020) 63.70 (mL/min/1.73m2) Glucose 103 (74-106) mg/dL Calcium 9.3 (8.5-10.1) mg/dL Magnesium 1.8 (1.8-2.4) mg/dL Total Bilirubin (0.2-1.0) mg/dL AST (15-37) U/L ALT (14-59) U/L Alkaline Phosphatase (46-116) U/L Troponin I (<or=60) ng/L NT-Pro-B Natriuret Pep (<300) pg/mL Total Protein (6.4-8.2) g/dL Albumin (3.4-5.0) g/dL TSH (0.36-3.74) uIU/mL COVID-19 Source SARS-CoV-2 (PCR) (Negative) Influenza Type A (PCR) (Negative) Influenza Type B (PCR) (Negative) RSV (PCR) (Negative) Intake and Output - 24 Hour Total 10/10/23 12:11 thru 10/10/23 12:28 Weight 54.7 kg Falls Risk Assessment History of Falls No History 10/10/23 13:52 Contributing Factors No Factors 10/10/23 13:52 Ambulatory Aids Independent 10/10/23 13:52 Tubes/Lines None 10/10/23 13:52 Gait Evaluation No gait disturbance 10/10/23 13:52 Cognition No cognitive impairment 10/10/23 13:52 Fall Total Score 0 10/10/23 13:52 Level of Risk Standard/Low Risk 10/10/23 13:52 Problems (Last Reviewed 10/10/23 @ 18:25 by Roscoe Hardwick) Hypokalemia (Acute) CHF (congestive heart failure) (Chronic) Renal atrophy, left (Acute) Hyperlipidemia (Acute) Migraine headache (Chronic) GERD (gastroesophageal reflux disease) (Chronic) Depression (Chronic) Sinus bradycardia (Acute) HTN (hypertension) (Chronic) Atypical chest pain (Acute) Blood pressure elevated without history of HTN (Acute) v v v v v v v v v Sending and/or Receiving Nurses: Please use comment section below to note any information pertinent to the patient hand-off not included above. Information / Comments: Lila KNIGHT all ?'s answered Report received from:
[2023-10-10] MEDS: Pantoprazole 40 MG VIAL IVP (19:33)
[2023-10-10 20:11] LABS: Troponin I 56 ng/L (<or=60)
[2023-10-10] MEDS: amLODIPine 5 MG TAB PO (20:39)
[2023-10-10] MEDS: Acetaminophen 325 MG TAB PO (20:39)
[2023-10-10] MEDS: Enoxaparin 40 MG/0.4 ML SYR SC (20:40)
[2023-10-10] MEDS: POTASSIUM CHLORIDE 20 MEQ/100 ML BAG 50 MEQ IVPB (20:40)
[2023-10-10] MEDS: Simvastatin 40 MG TAB PO (21:31)
[2023-10-10] MEDS: Sucralfate 1 GM TAB PO (21:31)
[2023-10-10] MEDS: traZODone 50 MG TAB 150 MG PO (21:32)
[2023-10-10] MEDS: Normal Saline Flush 10 ML SYR IVP ×2 (21:33)
[2023-10-11] VITALS (43 sets, daily range): BP systolic 104–130; BP diastolic 60–95; PULSE 40–73; RESP 12–28; TEMP 36–37.1; O2SAT 99–100
[2023-10-11] MEDS: Normal Saline Flush 10 ML SYR IVP ×3 (01:19→20:14)
[2023-10-11 05:43] LABS: Lactate 0.5 mmol/L (0.6-1.4)
[2023-10-11 05:44] LABS: Abs Immature Grans 0.01 10^3/uL (0.0-0.06); Absolute Basophil Count 0.01 10^3/uL (0.0-0.2); Absolute Eosinophil Count 0.14 10^3/uL (0.0-0.7); Absolute Lymphocyte Count 1.72 10^3/uL (1.2-3.4); Absolute Monocyte Count 0.34 10^3/uL (0.1-0.8); Absolute Neutrophil Count 3.19 10^3/uL (1.2-6.7); Basophils % 0.2; Eosinophils % 2.6; HCT 40.3 % (36.0-46.0); HGB 14.1 g/dL (11.2-15.7); Immature Grans % 0.2; Lymphocytes % 31.8; MCH 30.9 pg (27.0-33.0); MCV 88 fL (80-95); MPV 9.9 fL (8.0-11.0); Monocytes % 6.3; Neutrophils % 58.9; Platelet Count 178 10^3/uL (130-400); RBC 4.57 10^6/uL (3.93-5.22); RDW 12.7 % (11.7-14.6); RDW-SD 40.8 fL; WBC 5.41 10^3/uL (4.4-10.8)
[2023-10-11] MEDS: Sucralfate 1 GM TAB PO ×4 (05:45→20:12)
[2023-10-11 06:21] LABS: Anion Gap 6.9 mmol/L (3-11); BUN 5 mg/dL (7-18); CO2 28.1 mmol/L (21.0-32.0); CREATININE 1.2 mg/dL (0.55-1.02); Calcium 9.5 mg/dL (8.5-10.1); Chloride 106 mmol/L (98-107); Estimated GFR 51.18 (mL/min/1.73m2); Glucose 84 mg/dL (74-106); Magnesium 1.9 mg/dL (1.8-2.4); NT-proBNP 751 pg/mL (<300); Potassium 3.5 mmol/L (3.5-5.1); Sodium 141 mmol/L (136-145)
--- NOTE | 2023-10-11 07:15 | RT.EKG_ITS ---
APPROVED REPORT Exam: Resting ECG Reason for Exam: question of heart block Patient Location: I HR:44 bpm ECG Measurements Heart Rate 44 AXIS FL 156 P 56 QRSd 121 QRS 7 QT 534 T 53 QTc 457 Conclusion Sinus bradycardia...rate< 50 Probable left atrial enlargement...P >50mS, <-0.10mV V1 Nonspecific intraventricular conduction delay...QRSd >115mS, not LBBB/RBBB Anteroseptal infarct, age indeterminate...Q >35mS, T neg, V1-V2 I have reviewed and interpreted ECG and agree with software generated interpretation.
[2023-10-11] MEDS: Aspirin 81 MG CHEW PO (08:28)
[2023-10-11] MEDS: Escitalopram 20 MG TAB PO (08:28)
[2023-10-11] MEDS: lamoTRIgine 100 MG TAB PO (08:28)
[2023-10-11] MEDS: Loratidine 10 MG TAB PO (08:28)
[2023-10-11] MEDS: Pantoprazole 40 MG VIAL IVP (08:30)
[2023-10-11 08:53] LABS: Lab Add On Test DONE
--- NOTE | 2023-10-11 09:21 | INITIAL_ITS ---
Date of service: 10/11/23 Time of Service: 09:21 Care Management Initial Assmt Initial Assessment REASON FOR HOSPITALIZATION:: chest pain and CHF PREVIOUS FUNCTIONAL STATUS/SOCIAL/FAMILY SUPPORTS:: Chad lives in [place] in a 4 apartment building with her Mayco and one of their daughters. They have 3 children together and Ernesto has one daughter from a previous relationship. When asked if they are a close family, Ernesto responded when they get along. Apparently some of the children are at odds. Chad does not work and has been on disability for quite a long time. She does not receive any community services nor does she use a cane or walker. CURRENT FUNCTIONAL STATUS:: Chad was sitting up in bed visiting with her when CM met with her. Chad was pleasant and agreeable to conversation, as was Mayco. 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 Ernesto explained that Chad has a lot of anxiety that interfered with her ability to work. They do not anticipate that Chad will need any new services when discharged. ADVANCE DIRECTIVES:: none on file Has patient been provided with info about the portal/API?: Yes Did the patient sign up for the portal?: No CODE STATUS:: Full Code INSURANCE COVERAGE / FINANCIAL ISSUES:: Medicaid CURRENT HOME/COMMUNITY SERVICES/EQUIPMENT:: none PRIMARY CARE PHYSICIAN:: Ish[facility] - Dr. Nava POTENTIAL DISCHARGE NEEDS:: follow up with community providers PATIENT/FAMILY EDUCATION NEEDS:: Review of discharge instructions, activity, limitations, medications, follow up plan, discuss Ask Me Three TRANSPORTATION:: via private vehicle with family PLAN:: Anticipate Chad will be discharged home when medically cleared . She will follow up with her PCP and plan of care and transport with family. CM will follow and continue to support discharge needs. PFSH All Active Problems (Updated 10/11/23 @ 00:57 by Roscoe Hardwick) Hypokalemia (Acute) CHF (congestive heart failure) (Acute) Renal atrophy, left (Chronic) Hyperlipidemia (Chronic) Migraine headache (Chronic) GERD (gastroesophageal reflux disease) (Chronic) Depression (Chronic) Sinus bradycardia (Acute) HTN (hypertension) (Acute) Atypical chest pain (Acute) Blood pressure elevated without history of HTN (Acute) Surgical History (Updated 10/10/23 @ 18:29 by Roscoe Hardwick) S/P cholecystectomy Status post Lilly fundoplication Social History Smoking/Tobacco Use Status: Never Smoking risk assessment performed?: Yes Alcohol Intake: never Substance use type: does not use Housing: house Do you feel safe at home: Yes Do you feel safe in your relationship?: Yes
--- NOTE | 2023-10-11 10:00 | RT.EKG_ITS ---
APPROVED REPORT Exam: Resting ECG Reason for Exam: change in rhythm - ?junctional rhythm Patient Location: I HR:52 bpm ECG Measurements Heart Rate 52 AXIS ND [id number] P [id number] QRSd 99 QRS -27 QT 644 T 51 QTc 599 Conclusion Junctional rhythm...absent P waves, slow V-rate Borderline left axis deviation...QRS axis (-15,-29) Prolonged QT interval...QTc >500mS I have reviewed and interpreted ECG and agree with software generated interpretation.
[2023-10-11] MEDS: fentaNYL 100 MCG/2 ML VIAL 25 MCG IVP (17:31)
--- NOTE | 2023-10-11 17:41 | PGE_ITS ---
Date of Service Date of service: 10/11/23 Time of Service: 09:30 Assessment and Plan Assessment and plan (1) Junctional rhythm: Status: Acute Assessment and plan: In setting of epigastric pain, hiatal hernia despite Lilly fundoplication. Etiology does appear to be vasovagal. Will treat pain. Will consult general surgery for thoughts re possibility of issues with the hiatal hernia and consider CT surgical consult. (2) Epigastric pain: Status: Acute Assessment and plan: As above Increase PPI, continue carafate. (3) HTN (hypertension): Status: Acute Assessment and plan: Improved. Treat pain. Continue amlodipine started in the ED. Qualifiers: Hypertension type: primary hypertension Qualified Code(s): I10 - Essential (primary) hypertension (4) Hypokalemia: Status: Acute Assessment and plan: Resolved. Recheck in am (5) CHF (congestive heart failure): Status: Acute Assessment and plan: Resolved clinically - euvolemic. She did diurese over 2L today without having any furosemide on board. COntinue to monitor I/Os. Qualifiers: Heart failure type: other Qualified Code(s): I50.9 - Heart failure, unspecified (6) DVT prophylaxis: Status: Acute Assessment and plan: Sc lovenox (7) Discharge planning issues: Status: Acute Assessment and plan: Full code Subjective Subjective Interval history since last seen: Ms Castellanos continues to report epigastric and substernal chest pain. These are continuous. She did have an EGD earlier this year where the recurrence of hiatal hernia was noted but no other abnormalities. At the time, a surgical consult recommendation was made. It is not clear if the consult had actually happened. The patient denies dizziness, SOB, n/v. She has been going in and out of SB to junctional rhythm with HR in the 50s but as low as low 40s. Her case was discussed with cardiology who felt that this is due to vagal stimulation of the pain and/or possibly related to her hiatal hernia. Recommendation was to treat the pain and monitor. Exam Narrative Exam Narrative: General: A pleasant female with stereotypic lip movements, A&Ox3, appears comfortable in bed HEENT: EOMI, MMM Heart: RRR, no m/r/g Lungs: CTAB Abdomen: soft, nontender, nondistneded Extremities: no edema BLEs Objective Last Vital Signs Temp 36.5 C 10/11/23 05:37 Pulse 60 10/11/23 05:37 Resp 14 10/11/23 06:30 BP 104/64 10/11/23 05:37 Pulse Ox 100 10/11/23 05:37 Laboratory Results - last 24 hr 10/10/23 10/11/23 10/11/23 19:39 00:35 05:30 WBC RBC Hgb Hct MCV MCH MCHC RDW Plt Count MPV Immature Gran % Neutrophils % Lymphocytes % Monocytes % Eosinophils % Basophils % Nucleated RBC % Absolute Neutrophils Absolute Lymphocytes Absolute Monocytes Absolute Eosinophils Absolute Basophils VBG Lactate 0.5 L Sodium Potassium Chloride Carbon Dioxide Anion Gap BUN Creatinine Est GFR (CKD-EPI 2020) Glucose Calcium Magnesium Troponin I 56 NT-Pro-B Natriuret Pep Add-On Test Request DONE 10/11/23 05:35 WBC 5.41 RBC 4.57 Hgb 14.1 Hct 40.3 MCV 88 MCH 30.9 MCHC 35.0 RDW 12.7 Plt Count 178 MPV 9.9 Immature Gran % 0.2 Neutrophils % 58.9 Lymphocytes % 31.8 Monocytes % 6.3 Eosinophils % 2.6 Basophils % 0.2 Nucleated RBC % 0.0 Absolute Neutrophils 3.19 Absolute Lymphocytes 1.72 Absolute Monocytes 0.34 Absolute Eosinophils 0.14 Absolute Basophils 0.01 VBG Lactate Sodium 141 Potassium 3.5 Chloride 106 Carbon Dioxide 28.1 Anion Gap 6.9 BUN 5 L Creatinine 1.2 H Est GFR (CKD-EPI 2020) 51.18 Glucose 84 Calcium 9.5 Magnesium 1.9 Troponin I NT-Pro-B Natriuret Pep 751 H Add-On Test Request Objective Narrative Objective Narrative: Echo: LV of normal size and function. LVEF is 57%. No segmental wall motion abnormalities. RV is of normal size and function. Trace aortic regurgitation. Mild mitral and tricuspid regurgitation. Mild to moderate circumferential pericardial effusion without evidence of hemodynamic compromise. Time Spent with Patient Time Spent with Patient: 35-49 minutes Time was spent: preparing to see the patient(eg.review tests), obtaining and/or reviewing separately otained hiistory, ordering medications,tests, procedures, referring, communicating with other health medical care evaluation specialist, indepentently interpreting results, counseling the patient and care coordination
[2023-10-11] MEDS: Enoxaparin 40 MG/0.4 ML SYR SC (20:09)
[2023-10-11] MEDS: traZODone 50 MG TAB 150 MG PO (20:11)
[2023-10-11] MEDS: Simvastatin 40 MG TAB PO (20:12)
[2023-10-11] MEDS: Pantoprazole 40 MG TABCR PO (20:13)
[2023-10-11] MEDS: Docusate Sodium 100 MG CAP PO (20:43)
--- NOTE | 2023-10-11 23:39 | W.SURGCON ---
Date of service: 10/12/23 Time of Service: 18:00 Assessment and Plan Assessment and plan (1) GERD (gastroesophageal reflux disease): Status: Chronic Assessment and plan: - Continue PPI and Carafate Qualifiers: Esophagitis presence: without esophagitis Qualified Code(s): K21.9 - Gastro-esophageal reflux disease without esophagitis (2) Hyperlipidemia: Status: Chronic Qualifiers: Hyperlipidemia type: other hyperlipidemia Qualified Code(s): E78.49 - Other hyperlipidemia (3) Renal atrophy, left: Status: Chronic (4) CHF (congestive heart failure): Status: Acute Qualifiers: Heart failure type: other Qualified Code(s): I50.9 - Heart failure, unspecified (5) Junctional rhythm: Status: Acute (6) Epigastric pain: Status: Acute (7) HTN (hypertension): Status: Acute Qualifiers: Hypertension type: primary hypertension Qualified Code(s): I10 - Essential (primary) hypertension (8) Status post Lilly fundoplication: Assessment and plan: - I did review her CT which does showed a slipped Lilly. Does not show any signs of acute incarceration. Clinically she does not have any signs of acute incarceration. -I do not feel that her Lilly is related to her bradycardia. She will need further cardiac workup to delineate her problem prior to an EGD/anesthesia Continue maximal medical therapy of reflux. pH probe and manometry may be more beneficial than as well. Soft diet. She is edentulous and does not have dentures. Part of the problem seems to be related to meats and breads, which she cannot chew well. (9) Hiatal hernia with GERD: Status: Acute (10) Pericardial effusion: Status: Acute (11) Slipped Lilly fundoplication: Status: Acute (12) Edentulous: Status: Acute History of Present Illness Narrative: Pt is having josemanuel mild epigastric pain currently. She has a log standing hx of H/I. She does occ. have pain w/ swallowing. She does not have any palpable tenderness. She has not notice black/tarry stools. She has not been losing wt. She notes she has more pain w/ swallowing when eating meats and breads. She is edentulous. She had a Dk greater than 5 yrs ago. She is on prilosec at home. She has been told in the past she has a slow heart. She is not currently having CP. VS are stable. no fever or elevated WBC. She tolerated her dinner. no n/v. she does not have peritonitis. Pt is vague on her symptoms Review of Systems All systems reviewed & are unremarkable except as noted in HPI and below PFSH All Active Problems (Updated 10/11/23 @ 23:45 by Lavern Sim, DO) Edentulous (Acute) Slipped Lilly fundoplication (Acute) Pericardial effusion (Acute) Hiatal hernia with GERD (Acute) Discharge planning issues (Acute) DVT prophylaxis (Acute) Junctional rhythm (Acute) Epigastric pain (Acute) Hypokalemia (Acute) CHF (congestive heart failure) (Acute) Renal atrophy, left (Chronic) Hyperlipidemia (Chronic) Migraine headache (Chronic) GERD (gastroesophageal reflux disease) (Chronic) Depression (Chronic) Sinus bradycardia (Acute) HTN (hypertension) (Acute) Atypical chest pain (Acute) Blood pressure elevated without history of HTN (Acute) Surgical History (Updated 10/10/23 @ 18:29 by Roscoe Hardwick) S/P cholecystectomy Status post Lilly fundoplication Social History Smoking/Tobacco Use Status: Never Smoking risk assessment performed?: Yes Alcohol Intake: never Substance use type: does not use Housing: house Do you feel safe at home: Yes Do you feel safe in your relationship?: Yes Exam Narrative Exam Narrative: PHYSICAL EXAM GENERAL APPEARANCE: Alert, healthy appearance, oriented, x 3,? in no acute distress HYDRATION: Well hydrated HEAD, EYES, EARS, NECK, THROAT: Head is normocephalic, pupils equal, round, reactive to light and accommodation, ocular movement intact, sclera clear and no jaundice. ?Dentition-none LUNGS: normal respiration/normal chest excursion. ?Clear to auscultation bilaterally. ?No wheeze. ?HEART: Regular rate and rhythm. no murmurs ABDOMEN: soft and non-tender to palpation.? Normal bowel sounds.? Results Last Vital Signs Temp 37.1 C 10/11/23 21:31 Pulse 49 L 10/11/23 21:31 Resp 15 10/11/23 17:39 BP 110/60 10/11/23 21:31 Pulse Ox 99 10/11/23 21:31 Labs 10/12/23 04:48 10/12/23 15:55 Labs: Laboratory Results - last 24 hr 10/11/23 10/11/23 10/11/23 00:35 05:30 05:35 WBC 5.41 RBC 4.57 Hgb 14.1 Hct 40.3 MCV 88 MCH 30.9 MCHC 35.0 RDW 12.7 Plt Count 178 MPV 9.9 Immature Gran % 0.2 Neutrophils % 58.9 Lymphocytes % 31.8 Monocytes % 6.3 Eosinophils % 2.6 Basophils % 0.2 Nucleated RBC % 0.0 Absolute Neutrophils 3.19 Absolute Lymphocytes 1.72 Absolute Monocytes 0.34 Absolute Eosinophils 0.14 Absolute Basophils 0.01 VBG Lactate 0.5 L Sodium 141 Potassium 3.5 Chloride 106 Carbon Dioxide 28.1 Anion Gap 6.9 BUN 5 L Creatinine 1.2 H Est GFR (CKD-EPI 2020) 51.18 Glucose 84 Calcium 9.5 Magnesium 1.9 NT-Pro-B Natriuret Pep 751 H Add-On Test Request DONE
[2023-10-12] VITALS (12 sets, daily range): BP systolic 116–177; BP diastolic 67–95; PULSE 46–58; RESP 10–27; TEMP 36.6; O2SAT 96–100
[2023-10-12 04:59] LABS: Abs Immature Grans 0.01 10^3/uL (0.0-0.06); Absolute Basophil Count 0.02 10^3/uL (0.0-0.2); Absolute Eosinophil Count 0.17 10^3/uL (0.0-0.7); Absolute Lymphocyte Count 1.58 10^3/uL (1.2-3.4); Absolute Monocyte Count 0.29 10^3/uL (0.1-0.8); Absolute Neutrophil Count 2.22 10^3/uL (1.2-6.7); Basophils % 0.5; HCT 37.2 % (36.0-46.0); Immature Grans % 0.2; Lymphocytes % 36.8; MCH 30.2 pg (27.0-33.0); MCHC 34.9 % (32.0-36.0); MCV 86 fL (80-95); MPV 9.8 fL (8.0-11.0); Monocytes % 6.8; Neutrophils % 51.7; Platelet Count 170 10^3/uL (130-400); RBC 4.31 10^6/uL (3.93-5.22); RDW 12.5 % (11.7-14.6); RDW-SD 39.8 fL; WBC 4.29 10^3/uL (4.4-10.8)
[2023-10-12 05:14] LABS: Anion Gap 4.9 mmol/L (3-11); BUN 5 mg/dL (7-18); CO2 30.1 mmol/L (21.0-32.0); Calcium 9.3 mg/dL (8.5-10.1); Chloride 105 mmol/L (98-107); Glucose 90 mg/dL (74-106); Magnesium 1.9 mg/dL (1.8-2.4); Sodium 140 mmol/L (136-145)
--- NOTE | 2023-10-12 08:45 | RT.EKG_ITS ---
APPROVED REPORT Exam: Resting ECG Reason for Exam: chest pain Patient Location: I HR:42 bpm ECG Measurements Heart Rate 42 AXIS MI 154 P 37 QRSd 98 QRS 7 QT 510 T 44 QTc 427 Conclusion Sinus bradycardia...rate< 50 I have reviewed and interpreted ECG and agree with software generated interpretation.
[2023-10-12 08:59] LABS: Lab Add On Test DONE
--- NOTE | 2023-10-12 09:00 | W.PM.PROGNOT ---
Date of Service Date of service: 10/12/23 Time of Service: 09:00 Assessment and Plan Assessment and plan (1) Junctional rhythm: Status: Acute Assessment and plan: In setting of epigastric pain, hiatal hernia despite Lilly fundoplication. Etiology does appear to be vasovagal. Continue treatment of pain. Continue PPI + carafate. General surgery mentioned possibility of an EGD if the patient has adequate cardiac workup. Will discuss further. If anesthesia feels this patient is too high risk for an EGD here, we will seek an EGD at [facility]. (2) Epigastric pain: Status: Acute Assessment and plan: As above Continue PPI/carafate. This is different from the R-sided chest pain this am which is getting worked up with an EKG and troponins. (3) HTN (hypertension): Status: Acute Assessment and plan: Improved. Treat pain. Evidently amlodipine was held last night, but does not seem to require it now. Qualifiers: Hypertension type: primary hypertension Qualified Code(s): I10 - Essential (primary) hypertension (4) Hypokalemia: Status: Acute Assessment and plan: Replete, Recheck at 4 pm (5) CHF (congestive heart failure): Status: Acute Assessment and plan: Resolved clinically - euvolemic. Echo w/ preserved EF, a pericardial effusion which is not hemodynamically significant. TSH was 0.9. Does have a h/o very mild EtOH consumption in the past, so doubt cirrhosis. Does have evidence of hepatic steatosis on CT abdomen. Albumin was 3.7 on CMP on 10/10/23, so doubt the hypoalbuminemia cause of fluid overload. Consider bradycardia or hypertensive emergency as the cause. Appears euvolemic today. Monitor volume status. Qualifiers: Heart failure type: other Qualified Code(s): I50.9 - Heart failure, unspecified (6) DVT prophylaxis: Status: Acute Assessment and plan: Sc lovenox (7) Discharge planning issues: Status: Acute Assessment and plan: Full code Continues to require hospitalization. Subjective Subjective Interval history since last seen: Ms Castellanos reports r-sided CP. States her epigastric pain today is better/gone. Denies dizziness, SOB, n/v. CP is not worse on inspiration and is not reproducible with palpation. She continues to go in and out of junctional rhythm and sinus bradycardia. Exam Narrative Exam Narrative: General: A pleasant female with less of a stereotypic lip movement, A&Ox3, appears comfortable in bed HEENT: EOMI, MMM Heart: RRR, no m/r/g Lungs: CTAB Abdomen: soft, nontender, nondistneded Extremities: no edema BLEs Objective Last Vital Signs Temp 36.6 C 10/12/23 03:55 Pulse 46 L 10/12/23 03:55 Resp 12 10/12/23 03:55 BP 116/67 10/12/23 03:55 Pulse Ox 96 10/12/23 03:55 Laboratory Results - last 24 hr 10/12/23 10/12/23 04:48 13:00 WBC 4.29 L RBC 4.31 Hgb 13.0 Hct 37.2 MCV 86 MCH 30.2 MCHC 34.9 RDW 12.5 Plt Count 170 MPV 9.8 Immature Gran % 0.2 Neutrophils % 51.7 Lymphocytes % 36.8 Monocytes % 6.8 Eosinophils % 4.0 Basophils % 0.5 Nucleated RBC % 0.0 Absolute Neutrophils 2.22 Absolute Lymphocytes 1.58 Absolute Monocytes 0.29 Absolute Eosinophils 0.17 Absolute Basophils 0.02 Sodium 140 Cancelled Potassium 3.0 L Cancelled Chloride 105 Cancelled Carbon Dioxide 30.1 Cancelled Anion Gap 4.9 Cancelled BUN 5 L Cancelled Creatinine 1.0 Cancelled Est GFR (CKD-EPI 2020) 63.70 Cancelled Glucose 90 Cancelled Calcium 9.3 Cancelled Magnesium 1.9 Add-On Test Request DONE Time Spent with Patient Time Spent with Patient: 35-49 minutes Time was spent: preparing to see the patient(eg.review tests), obtaining and/or reviewing separately otained hiistory, ordering medications,tests, procedures, referring, communicating with other health career development specialist, indepentently interpreting results, counseling the patient and care coordination
[2023-10-12] MEDS: Loratidine 10 MG TAB PO (09:11)
[2023-10-12] MEDS: lamoTRIgine 100 MG TAB PO (09:11)
[2023-10-12] MEDS: Aspirin 81 MG CHEW PO (09:11)
[2023-10-12] MEDS: Escitalopram 20 MG TAB PO (09:11)
[2023-10-12] MEDS: Sucralfate 1 GM TAB PO ×4 (09:11→19:08)
[2023-10-12] MEDS: Pantoprazole 40 MG TABCR PO ×2 (09:11→19:09)
[2023-10-12] MEDS: Normal Saline Flush 10 ML SYR IVP ×2 (09:12→19:14)
[2023-10-12] MEDS: POTASSIUM CHLORIDE 20 MEQ/100 ML BAG 50 MEQ IVPB (09:13)
[2023-10-12 09:18] LABS: Troponin I < 50 ng/L (<or=60)
[2023-10-12] MEDS: Normal Saline 500 ML 50 ML IV ×2 (09:20→19:47)
[2023-10-12 09:33] LABS: Troponin I < 50 ng/L (<or=60)
[2023-10-12] MEDS: Polyethylene Glycol 3350 17 GM PACKET PO ×2 (09:48→17:53)
[2023-10-12] MEDS: POTASSIUM CHLORIDE 20 MEQ/100 ML BAG 30 MEQ IVPB ×2 (12:42→17:01)
--- NOTE | 2023-10-12 12:43 | W.PM.PROGNOT ---
Date of Service Date of service: 10/12/23 Time of Service: 12:44 Assessment and Plan Assessment and plan (1) Esophageal dysmotility: Status: Acute Assessment and plan: Patient is followed by GI at [facility] I was able to review their notes today.. She had an EGD in April 2027. It was normal other than the above slipped Lilly/hiatal hernia noted. The endoscopist did not feel biopsies were necessary. There were no strictures noted.(Patient keeps alluding to the fact that she has a narrowing in her esophagus and this is why she has swallowing problems) Patient did have a motility directed barium swallow which did show esophageal dysmotility and delayed emptying. GIs recommendations were as follows: Pantoprazole 40 mg twice daily 30 to 60 minutes prior to breakfast and dinner. If Protonix does not help then consider Dexilant -Warm fluids before and with meals It was also recommended that she have pH probe and manometry studies performed. She is scheduled to have this done in February 2024 and does have an appointment at [facility]. -She should continue to follow-up with GI. She does have a previously scheduled appointment. -Her heart rate at her last GI appointment was noted to be 55. There is no mention of any bradycardia or cardiac concerns. She has never been referred to cardiology at . -will change PPI to dexilant -? if requires ASA in light of GI issues -F?u w/ GI as previously scheduled (2) Delayed gastric emptying: Status: Acute (3) Edentulous: Status: Acute (4) Slipped Lilly fundoplication: Status: Acute (5) Hiatal hernia with GERD: Status: Acute Subjective Subjective Interval history since last seen: Pt is doing well. no headaches. No CP or SOB. no productive cough. no dysuria. no leg pain or swelling. tolerated po's. Objective Last Vital Signs Temp 36.6 C 10/12/23 03:55 Pulse 56 L 10/12/23 07:07 Resp 12 10/12/23 03:55 BP 116/67 10/12/23 03:55 Pulse Ox 96 10/12/23 03:55 Laboratory Results - last 24 hr 10/12/23 10/12/23 10/12/23 04:48 09:09 13:00 WBC 4.29 L RBC 4.31 Hgb 13.0 Hct 37.2 MCV 86 MCH 30.2 MCHC 34.9 RDW 12.5 Plt Count 170 MPV 9.8 Immature Gran % 0.2 Neutrophils % 51.7 Lymphocytes % 36.8 Monocytes % 6.8 Eosinophils % 4.0 Basophils % 0.5 Nucleated RBC % 0.0 Absolute Neutrophils 2.22 Absolute Lymphocytes 1.58 Absolute Monocytes 0.29 Absolute Eosinophils 0.17 Absolute Basophils 0.02 Sodium 140 Cancelled Potassium 3.0 L Cancelled Chloride 105 Cancelled Carbon Dioxide 30.1 Cancelled Anion Gap 4.9 Cancelled BUN 5 L Cancelled Creatinine 1.0 Cancelled Est GFR (CKD-EPI 2020) 63.70 Cancelled Glucose 90 Cancelled Calcium 9.3 Cancelled Magnesium 1.9 Troponin I < 50 < 50 Add-On Test Request DONE Time Spent with Patient Time Spent with Patient: 35-49 minutes Time was spent: preparing to see the patient(eg.review tests), obtaining and/or reviewing separately otained hiistory, ordering medications,tests, procedures, referring, communicating with other health child care attendant, counseling the patient and care coordination
[2023-10-12 16:11] LABS: Anion Gap 6.4 mmol/L (3-11); BUN 7 mg/dL (7-18); CO2 27.6 mmol/L (21.0-32.0); CREATININE 1.1 mg/dL (0.55-1.02); Calcium 9.4 mg/dL (8.5-10.1); Chloride 102 mmol/L (98-107); Estimated GFR 56.81 (mL/min/1.73m2); Glucose 100 mg/dL (74-106); Potassium 3.6 mmol/L (3.5-5.1); Sodium 136 mmol/L (136-145)
[2023-10-12] MEDS: Acetaminophen 325 MG TAB PO (17:01)
[2023-10-12] MEDS: Docusate Sodium 100 MG CAP PO (17:53)
[2023-10-12] MEDS: traZODone 50 MG TAB 150 MG PO (19:09)
[2023-10-12] MEDS: Atorvastatin 20 MG TAB PO (19:10)
[2023-10-12] MEDS: Enoxaparin 40 MG/0.4 ML SYR SC (19:10)
[2023-10-12] MEDS: HYDROmorphone 2 MG/ML SYR 0.5 MG IVP (19:16)
[2023-10-12] MEDS: Mylanta Suspension 30 ML CUP PO (20:07)
[2023-10-13 02:22] VITALS: BP 109/64; PULSE 51; RESP 14; TEMP 36.6; O2SAT 98
[2023-10-13 07:06] LABS: Abs Immature Grans 0.01 10^3/uL (0.0-0.06); Absolute Basophil Count 0.02 10^3/uL (0.0-0.2); Absolute Eosinophil Count 0.17 10^3/uL (0.0-0.7); Absolute Lymphocyte Count 1.44 10^3/uL (1.2-3.4); Absolute Monocyte Count 0.25 10^3/uL (0.1-0.8); Absolute Neutrophil Count 2.37 10^3/uL (1.2-6.7); Basophils % 0.5; HCT 38.5 % (36.0-46.0); Immature Grans % 0.2; Lymphocytes % 33.8; MCH 30.2 pg (27.0-33.0); MCHC 33.8 % (32.0-36.0); MCV 89 fL (80-95); MPV 10.2 fL (8.0-11.0); Monocytes % 5.9; Neutrophils % 55.6; Platelet Count 164 10^3/uL (130-400); RBC 4.31 10^6/uL (3.93-5.22); RDW 12.6 % (11.7-14.6); RDW-SD 41.4 fL; WBC 4.26 10^3/uL (4.4-10.8)
[2023-10-13 07:10] VITALS: BP 106/62; PULSE 44; RESP 18; TEMP 36; O2SAT 98
[2023-10-13 07:18] LABS: Anion Gap 7.2 mmol/L (3-11); BUN 6 mg/dL (7-18); CO2 26.8 mmol/L (21.0-32.0); CREATININE 0.9 mg/dL (0.55-1.02); Calcium 9.5 mg/dL (8.5-10.1); Chloride 106 mmol/L (98-107); Estimated GFR 72.28 (mL/min/1.73m2); Glucose 81 mg/dL (74-106); Magnesium 2.1 mg/dL (1.8-2.4); Sodium 140 mmol/L (136-145)
[2023-10-13] MEDS: Mylanta Suspension 30 ML CUP PO (07:52)
[2023-10-13] MEDS: Sucralfate 1 GM TAB PO ×2 (07:52→11:50)
[2023-10-13] MEDS: Escitalopram 20 MG TAB PO (07:53)
[2023-10-13] MEDS: Aspirin 81 MG CHEW PO (07:53)
[2023-10-13] MEDS: Dexlansoprazole 30 MG CAP PO (07:53)
[2023-10-13] MEDS: Loratidine 10 MG TAB PO (07:53)
[2023-10-13] MEDS: lamoTRIgine 100 MG TAB PO (07:53)
[2023-10-13] MEDS: Normal Saline Flush 10 ML SYR IVP (08:34)
[2023-10-13 11:29] VITALS: BP 124/85; PULSE 49; RESP 16; TEMP 37.5; O2SAT 100
--- NOTE | 2023-10-13 13:04 | W.PM.DS.N ---
Date of service: 10/13/23 Time of Service: 13:30 DS: Diagnosis Discharge Diagnosis (1) Hypertensive emergency: Status: Acute (2) Atypical chest pain: Status: Acute (3) Pulmonary edema: Status: Resolved (4) Epigastric pain: Status: Resolved (5) QT prolongation: Status: Resolved Asessment and Plan: in setting of hypokalemia (6) Sinus bradycardia: Status: Acute (7) Junctional rhythm: Status: Acute Asessment and Plan: thought to be vagal in etiology (8) Slipped Lilly fundoplication: Status: Acute (9) Hiatal hernia with GERD: Status: Acute (10) Esophageal dysmotility: Status: Chronic (11) Delayed gastric emptying: Status: Chronic (12) Pericardial effusion: Status: Acute (13) Hypokalemia: Status: Acute (14) Anasarca: Status: Acute (15) Hyperlipidemia: Status: Chronic (16) Migraine headache: Status: Chronic (17) Depression: Status: Chronic (18) Edentulous: Status: Chronic (19) Renal atrophy, left: Status: Chronic Discharge Plan Disposition Patient Disposition: Home Condition: Stable Discharge Details Reason For Visit: CHF,chest pain,bradycardia,hypertensive wilber,low p Admit Date/Time: 10/12/23 12:10 Admit Provider: Lisa Coelho Attending Provider: Lisa Coelho Primary Care Provider: Unknown,Unknown Hospital Course Hospital Course: Ms Castellanos is a 63 year old female with PMHx of GERD s/p Lilly fundoplication w/ known recurrence of hiatal hernia, delayed esophageal emptying and dysmotility, as well as h/o hyperlipidemia and depression, who was admitted to [facility] hospitalist service on 10/10/23 for atypical chest pain, which was connected to the patient's chronic epigastric pain, as well as significant sinus bradycardia with HR in the 40s noted in the ED intermittently converting to junctional rhythm, felt to be vagal in etiology. CTA chest/abdomen/pelvis ruled out aortic pathology. The patient did have evidence of QT prolongation on her original EKG and was hypokalemic at the time. She was also hypertensive to as high as 225/94, which was treated with furosemide as there was evidence of pulmonary edema clinically and on imaging. She was then initially started on amlodipine, but then given evidence of a diminutive left renal artery, a decision was made to switch her to an franklin-i. On presentation, there was a question of R-sided failure as there was also evidence of ascites without cirrhosis and mild generalized anasarca witha normal TSH. She ruled out for ACS with negative troponins. Her echocardiogram showed a normal LV size, LVEF of 57% without segmental wall motion abnormalities, normal VR zie and function, trace aortic regurgitation, mild mitral and tricuspid regurgitation. There was evidence of a mild to moderate nonhemodynamically significant pericardial effusion. Her chest pain was not positional nor pleuritic and is not felt to represent pericarditis. Her CRP was less than 0.05, and her EKGs were not c/w pericarditis. General surgery was consulted for the question of slipped Lilly's fundoplication with a recurrent hiatal hernia seen on CTA possibly being implicated in increased vagal tone contributing to her sinus bradycardia/junctional rhythm as well as chest/epigastric pain. Review of past records of a barium swallow done at [facility] revealed that the patient had delayed esophageal emptying/esophageal dysmotility. For this, she was initiated on erythromycin. Given her symptoms of GERD, she was also treated with a PPI (initially protonix, then due to poor response switched to dexilant which did seem to help) as well as carafate. Her pain has resolved as have symptoms of GERD. She continued to have persistent sinus bradycardia with episodes of junctional rhythm. A consultation with [facility] cardiology by phone was thought with recommendations of ensuring electrolytes were repleted given QT prolongation (potassium had normalized and QT prolongation had resolved), no further ischemic workup or intervention, and placing an extended cardia monitor on the patient at the time of discharge. She will need a repeat echocardiogram in 6 months as an outpatient. From the esophageal dysmotility stand point, the patient has an appointment with [facility] for esophageal manometry as well as general surgical follow up. She is instructed to keep these appointments. She is medically stable for discharge home today. Care for patient as well as completion of her discharge summary took 60 minutes on the day of discharge. Of note, prior authorization was submitted and is pending for dexilant and erythromycin at the time of discharge. Home Meds and New Rx's Prescriptions: New aspirin [Children's Aspirin] 81 mg Tablet,Chewable 81 mg PO DAILY Qty: 30 0RF atorvastatin 20 mg Tablet 20 mg PO QPM Qty: 30 0RF dexlansoprazole [Dexilant] 30 mg Capsule,Biphase Delayed Releas 30 mg PO BID Qty: 60 0RF sucralfate 1 gram Tablet 1 g PO AC & HS Qty: 120 0RF lisinopril 2.5 mg tablet 2.5 mg PO DAILY Qty: 30 0RF erythromycin [Ward-Tab] 250 mg tablet,delayed release (DR/EC) 250 mg PO TID Qty: 90 0RF erythromycin ethylsuccinate 200 mg/5 mL Suspension For Reconstitution 200 mg PO Q8H Qty: 100 0RF Rx Instructions: until you are able to fill erythromycin tablets from the pharmacy Continued escitalopram oxalate 20 mg tablet 20 mg PO DAILY loratadine [Allerclear] 10 mg tablet 10 mg PO DAILY trazodone 150 mg tablet 150 mg PO QHS PRN Qulipta 60 mg tablet 60 mg PO DAILY lamotrigine [Lamictal] 100 mg tablet 100 mg PO DAILY Discontinued simvastatin 40 mg tablet 40 mg PO QHS omeprazole 40 mg capsule,delayed release(DR/EC) 40 mg PO DAILY Discharge Instructions Instructions: Erythromycin (By mouth), Lisinopril (By mouth), Chest Pain (DC), Hypokalemia (DC), GERD (Gastroesophageal Reflux Disease) (DC), Pericardial Effusion (ED), Bradycardia (DC), Abdominal Pain (ED), Hypertension (DC) Additional Instructions: Per [facility] cardiology, you do not need a stress test. Follow up with your PCP as scheduled. Return to the hospital with any fever, bleeding, chest pain, or shortness of breath. Bloodwork 10/15/23. Your upcoming appointments per [facility] medical record: 12/09/23 12:30 pm (arrive by 12:10 pm): Monroe Huang APRN Neurology at [facility] [address] 12/12/23 10:15 am (arrive by 10 am): Juhi Muñoz MD - General Surgery at [facility] (Operations Label Clerk Area 4L) 02/21/24 09:30 (arrive by 9:15 am): Arturo Winter APRN - Gastroenterology at [facility] (concierge receptionist area 4L) - manometry appointment Stand Alone Forms: Nursing Discharge Form Referrals: Clare Baeza [[facility]ISTERED NURSE] - Unknown,Unknown [Primary Care Provider] - (Please keep your appointment on October 24 ) Activity:: Activity as Tolerated Equipment/Supplies:: cardiac event recorder Diet:: Low Sodium Discharge Orders Discharge Orders: Discharge Order (Routine); Ordered 10/13/23 Ordered By: Lisa Coelho Other Ambulatory Orders: Cardiac Event Recorder (Routine) Timeframe: 20231013 Facility: [facility] - Location: Respiratory Therapy Ordered By: Lisa Coelho Basic Metabolic Panel (Routine) Timeframe: 20231015 Facility: [facility] - Location: Laboratory Outpatient - [facility] Ordered By: Lisa Coelho Magnesium (Routine) Timeframe: 20231015 Facility: [facility] - Location: Laboratory Outpatient - [facility] Ordered By: Lisa Coelho Discharge Data Discharge Date/Time-TO BE ENTERED AT DEPARTURE: 10/13/23 14:28 DS: Summary Time Spent with Patient providing and/or coordinating discharge services: Greater than 30 minutes Status at Discharge Functional status at discharge: independent ambulation Overall status at discharge: patient is back to baseline Mental Status: mental status grossly normal Speech and Movement: speech and movement normal Mood: congruent mood Affect: normal affect Exam Narrative Exam Narrative: General: A pleasant female with less of a stereotypic lip movement, A&Ox3, appears comfortable in bed HEENT: EOMI, MMM Heart: RRR, no m/r/g Lungs: CTAB Abdomen: soft, nontender, nondistneded Extremities: no edema BLEs Psych Mental Status: mental status grossly normal Speech and Movement: speech and movement normal Mood: congruent mood Affect: normal affect DS: Data Vitals/I&O Vitals and I&O: Vital Signs Temperature 37.5 C 10/13/23 11:29 Temperature Source Tympanic 10/13/23 11:29 Pulse 49 L 10/13/23 11:29 Pulse Rhythm Regular 10/13/23 10:12 Pulse 47 L 10/12/23 20:00 Respiratory Rate 16 10/13/23 11:29 Respiratory Effort Normal, Non-Labored 10/13/23 10:12 Respiratory Depth Normal 10/13/23 10:12 Respiratory Pattern Normal 10/13/23 10:12 Blood Pressure 124/85 10/13/23 11:29 Blood Pressure Mean 118 10/12/23 19:50 Blood Pressure Position Supine 10/10/23 19:49 Pulse Oximetry 100 10/13/23 11:29 Oxygen Delivery Method Room Air 10/13/23 11:29 Oxygen Flow Rate 0 10/13/23 11:29 Pain Level 0 10/13/23 11:29 Intake & Output 10/12/23 10/13/23 10/13/23 23:59 11:59 23:59 Intake Total 1460 / 2350 Output Total 685 / 1785 Balance 775 / 565 Weight 50.8 kg Intake: IV 700 / 700 Oral 760 / 1650 Output: Urine 685 / 1785 Other: Urine Color Yellow Urine Appearance Clear Urine Odor Normal Comment pt. has been voiding independently. Stool Size Small Stool Characteristics Hard Voiding Methods Toilet Toilet Data Completed and Pending Completed studies during hospitalization [Text1]: CXR 10/10/23: No acute pulmonary findings. CTA chest/abdomen/pelvis 10/10/23: 1. The ascending thoracic aorta is enlarged measuring 3.9 cm. However, there is no evidence of aortic dissection nor pericardial effusion. No evidence of abdominal aortic aneurysm. Also no evidence of pulmonary emboli nor pulmonary infarction. There are no pleural effusions. 2. The left kidney is diminutive and the left renal artery is also diminutive. Right kidney and right renal artery appear unremarkable. 3. There is a small amount of ascites in the abdomen and pelvis. There is also mild anasarca. Some reflux of contrast was noted into the intrahepatic IVC. Cannot exclude element of right heart failure. 4. Previous cholecystectomy. No significant dilatation of the biliary tree. CT head w/o contrast: 1. No acute intracranial process. Echo: LV is of normal size. Wall thickness is normal. LV systolic function is normal. The LVEF is 57%. There are no segmental wall motion abnormalities. The RV is of normal size. RV systolic function is normal. There is trace aortic regurgitation, mild mitral and tricuspid regurgitation. There is a mild to moderate circumferential pericardial effusion. There is no evidence of hemodynamic compromise. Labs on day of discharge: Labs from last 24 hours 10/13/23 10/12/23 06:33 15:55 WBC 4.26 L RBC 4.31 Hgb 13.0 Hct 38.5 MCV 89 MCH 30.2 MCHC 33.8 RDW 12.6 Plt Count 164 MPV 10.2 Immature Gran % 0.2 Neutrophils % 55.6 Lymphocytes % 33.8 Monocytes % 5.9 Eosinophils % 4.0 Basophils % 0.5 Nucleated RBC % 0.0 Absolute Neutrophils 2.37 Absolute Lymphocytes 1.44 Absolute Monocytes 0.25 Absolute Eosinophils 0.17 Absolute Basophils 0.02 Sodium 140 136 Potassium 4.0 3.6 Chloride 106 102 Carbon Dioxide 26.8 27.6 Anion Gap 7.2 6.4 BUN 6 L 7 Creatinine 0.9 1.1 H Est GFR (CKD-EPI 2020) 72.28 56.81 Glucose 81 100 Calcium 9.5 9.4 Magnesium 2.1 PFSH All Active Problems (Updated 10/13/23 @ 17:25 by Lisa Coelho MD) Hypertensive emergency (Acute) Anasarca (Acute) Delayed gastric emptying (Chronic) Esophageal dysmotility (Chronic) Edentulous (Chronic) Slipped Lilly fundoplication (Acute) Pericardial effusion (Acute) Hiatal hernia with GERD (Acute) Discharge planning issues (Acute) DVT prophylaxis (Acute) Junctional rhythm (Acute) Hypokalemia (Acute) CHF (congestive heart failure) (Acute) Renal atrophy, left (Chronic) Hyperlipidemia (Chronic) Migraine headache (Chronic) GERD (gastroesophageal reflux disease) (Chronic) Depression (Chronic) Sinus bradycardia (Acute) HTN (hypertension) (Acute) Atypical chest pain (Acute) Blood pressure elevated without history of HTN (Acute) Surgical History (Updated 10/10/23 @ 18:29 by Roscoe Hardwick) S/P cholecystectomy Status post Lilly fundoplication Social History Smoking/Tobacco Use Status: Never Smoking risk assessment performed?: Yes Alcohol Intake: never Substance use type: does not use Housing: house Do you feel safe at home: Yes Do you feel safe in your relationship?: Yes Time Spent with Patient Time Spent with Patient: 45-69 minutes Time was spent: preparing to see the patient(eg.review tests), obtaining and/or reviewing separately otained hiistory, ordering medications,tests, procedures, referring, communicating with other health managed care director, indepentently interpreting results, counseling the patient and care coordination
[2023-10-13 13:57] LABS: Lab Add On Test DONE
[2023-10-13 14:07] LABS: C-Reactive Protein < 0.05 mg/dL (0.0-0.3)
[2023-10-15 10:33] LABS: Lyme Ab w Rflx to Lyme Confirm Negative (Negative)
[2023-10-15 14:06] LABS: Anaplasma phagocytophilum Negative (Negative); B. miyamotoi PCR Negative (Negative); Babesia divergens/MO-1 Negative (Negative); Babesia duncani Negative (Negative); Babesia microti Negative (Negative); Ehrlichia chaffeensis Negative (Negative); Ehrlichia ewingii/canis Negative (Negative); Ehrlichia muris eauclairensis Negative (Negative)
== END 2023-10-13 14:28 | disposition home or self-care (01) | DRG 292 ==
LOC: ER 18:37 → ICU 20:04 → MS 10-12 21:09
PROVIDERS: Admitting Provider Internal Medicine; Emergency Provider Emergency Medicine; Visit Provider Internal Medicine
DX: I11.0 Hypertensive heart disease with heart failure (principal); I16.1 Hypertensive emergency; K91.89 Other postprocedural complications and disorders of digestive system; I50.811 Acute right heart failure; I50.810 Right heart failure, unspecified; R07.89 Other chest pain; K21.9 Gastro-esophageal reflux disease without esophagitis; E78.49 Other hyperlipidemia; K44.9 Diaphragmatic hernia without obstruction or gangrene; E87.6 Hypokalemia; I49.8 Other specified cardiac arrhythmias; K08.109 Complete loss of teeth, unspecified cause, unspecified class; F32.89 Other specified depressive episodes; N26.1 Atrophy of kidney (terminal); K76.0 Fatty (change of) liver, not elsewhere classified; K22.4 Dyskinesia of esophagus; K30 Functional dyspepsia; G43.909 Migraine, unspecified, not intractable, without status migrainosus; R60.1 Generalized edema; I08.1 Rheumatic disorders of both mitral and tricuspid valves
CPT/HCPCS: 00123; 36415; 71275; 80048; 80053; 87637; 87798; 93005; 93308; 96372; 99223; 99285; J1650; 70450; 71045; 74174; 83605; 83735; 83880; 84443; 84484; 85025; 85379; 86140; 86618; 93010; 93306; 99233; 99239; G0378; J1170; J3010; J3480; J3490

== ENCOUNTER 2023-10-15 09:29 | Outpatient (CLI) | payer MEDICARE, MEDICAID, SELFPAY ==
[2023-10-15 13:52] LABS: Anion Gap 9.1 mmol/L (3-11); BUN 8 mg/dL (7-18); CO2 25.9 mmol/L (21.0-32.0); CREATININE 1.1 mg/dL (0.55-1.02); Chloride 100 mmol/L (98-107); Estimated GFR 56.81 (mL/min/1.73m2); Glucose 99 mg/dL (74-106); Magnesium 1.6 mg/dL (1.8-2.4); Potassium 3.7 mmol/L (3.5-5.1); Sodium 135 mmol/L (136-145)
== END 2023-10-15 09:30 | disposition home or self-care (01) ==
LOC: LBO 09:29
PROVIDERS: Visit Provider Internal Medicine
DX: E87.6 Hypokalemia (principal); E78.5 Hyperlipidemia, unspecified; R94.31 Abnormal electrocardiogram [ECG] [EKG]; R00.1 Bradycardia, unspecified
CPT/HCPCS: 36415; 80048; 83735

== ENCOUNTER 2023-11-21 07:43 | Outpatient (CLI) | payer MEDICARE, MEDICAID, SELFPAY ==
--- NOTE | 2023-11-21 09:26 | W.HOLTRPT ---
Date of service: 11/21/23 Time of Service: 09:26 Holter Monitor Report Referring Provider:: Laquita Indications:: Heart failure,unspecified Holter Monitor Note: This was a 48-hour Holter monitor done on this patient with a history of heart failure 1. The underlying rhythm is sinus rate range 40 to 85 bpm. The slowest heart rate of 40 bpm occurred at 11:53 PM on day 2 of monitoring. This was possibly during sleep hours. 2. There were no supraventricular or ventricular ectopy despite computer software reading of atrial run. 3. No pauses noted 4. No atrial fibrillation
== END 2023-11-21 07:44 | disposition home or self-care (01) ==
LOC: CARDOPNVT 07:43
PROVIDERS: Visit Provider Internal Medicine Interventional Cardiology
DX: I50.9 Heart failure, unspecified (principal)
CPT/HCPCS: 93248; 93270